=== PATIENT | male | born 2000 | race Caucasian/White ===

== ENCOUNTER 2022-06-15 22:38 | Emergency (ER) | payer BC ==
[2022-06-15] MEDS ORDERED: methylPREDNISolone Sodium Succinate 125 MG/2 ML SDV IVPUSH ONE (22:53)
[2022-06-15] MEDS ORDERED: Sodium Chloride 0.9% 1,000 ML IV ONE ×2 (22:54→23:55)
[2022-06-15] MEDS ORDERED: Ketorolac 15 MG/ML SDV IVPUSH ONE (22:57)
[2022-06-15] MEDS ORDERED: Ondansetron 4 MG/2 ML SDV IVPUSH ONE (23:30)
[2022-06-15] MEDS ORDERED: Ondansetron 4 MG/2 ML SDV ONE (23:31)
== END 2022-06-16 00:10 | disposition home or self-care (01) ==
LOC: LL.ED 22:38
DX: J10.1 Influenza due to other identified influenza virus with other respiratory manifestations (principal); J02.0 Streptococcal pharyngitis
CPT/HCPCS: 96361; 96374; 96375; 99283-25; J1885; J2405; J2930; J7030

== ENCOUNTER 2023-01-21 04:22 | Emergency (ER) | payer BC | END 2023-01-21 05:15 | disposition home or self-care (01) | LOC: LL.ED 04:22 | DX: S50.811A Abrasion of right forearm, initial encounter (principal); S60.511A Abrasion of right hand, initial encounter; F17.210 Nicotine dependence, cigarettes, uncomplicated; W25.XXXA Contact with sharp glass, initial encounter | CPT/HCPCS: 73130-RT; 99283 ==